=== PATIENT | male | born 1995 | race Caucasian/White ===

== ENCOUNTER 2017-02-15 06:28 | Day surgery (SDC) | payer MEDICAID ==
[~2017-02-15] VITALS: Ht 147.3 cm; Wt 55.0 kg
[~2017-02-15 06:28] MED LIST: ACET-2902 PO; ACET325T47 PO; BISA10SU22 RC; BUSP15 PO; CARB200T6 PO; FE RC; MIRAUD PO; PARO20TA24 PO; RINGERS SOLUTION,LACTATED 1,000 ML IV ONE; TRIH5TAB2 PO
[2017-02-15] MEDS ORDERED: SODIUM CHLORIDE 0.9% 0 ML ONE (06:49)
[2017-02-15] MEDS ORDERED: BACITRACIN 50,000 UNITS/VIAL ONE (06:50)
[2017-02-15] MEDS ORDERED: BACITRACIN 28.4 GM OINTMENT TP ONE (06:51)
[2017-02-15] MEDS ORDERED: MIDAZOLAM HCL 5 MG/ML VIAL ONE (07:13)
[2017-02-15] MEDS ORDERED: SODIUM CHLORIDE 0.9% 10 ML ONE (07:55)
[2017-02-15] MEDS ORDERED: EPINEPHrine 1:1,000 [1 MG/ML] AMP ONE (07:55)
[2017-02-15] MEDS ORDERED: LIDOCAINE HCL 1%/EPI 1:200,000/PF 10 ML VIAL ONE (07:56)
[2017-02-15] MEDS ORDERED: RINGERS SOLUTION,LACTATED 1,000 ML IV ONE (08:31)
[2017-02-15] MEDS ORDERED: HEPARIN SODIUM 1000 UNITS/NS 500 ML ONE (08:48)
[2017-02-15] MEDS ORDERED: ROCURONIUM BROMIDE 10 MG/ML 5 ML VIAL IVP ONE (12:00)
[2017-02-15] MEDS ORDERED: KETAMINE HCL 50 MG/ML 10 ML VIAL IVP ONE (12:00)
[2017-02-15] MEDS ORDERED: METOCLOPRAMIDE HCL 5 MG/ML 2 ML VIAL IVP ONE (12:00)
[2017-02-15] MEDS ORDERED: NEOSTIGMINE METHYLSULFATE 1 MG/ML 10 ML VIAL IVP ONE (12:00)
[2017-02-15] MEDS ORDERED: DiphenhydrAMINE HCL 50 MG/ML VIAL IVP ONE (12:00)
[2017-02-15] MEDS ORDERED: ONDANSETRON HCL 4 MG/2 ML VIAL IVP ONE (12:00)
[2017-02-15] MEDS ORDERED: GLYCOPYRROLATE 0.2 MG/ML VIAL IM ONE (12:00)
[2017-02-15] MEDS ORDERED: LIDOCAINE HCL/PF 2% 5 ML VIAL INJ ONE (12:00)
[2017-02-15] MEDS ORDERED: DEXAMETHASONE SOD PHOS 4 MG/ML VIAL IVP ONE (12:00)
[2017-02-15] MEDS ORDERED: FentaNYL CITRATE-PF 100 MCG/2 ML VIAL IVP ONE (12:00)
[2017-02-15] MEDS ORDERED: PROPOFOL 1% 20 ML VIAL IVP ONE (12:00)
== END 2017-02-15 10:05 | disposition home or self-care (01) ==
LOC: SDS 06:28 → EDSTATUS 07:30 → SDS 10:05
PROVIDERS: ATTEND Otolaryngology
DX: S00.432A Contusion of left ear, initial encounter (principal); F73 Profound intellectual disabilities; Z88.0 Allergy status to penicillin; Z86.69 Personal history of other diseases of the nervous system and sense organs; X83.8XXA Intentional self-harm by other specified means, initial encounter; Y93.9 Activity, unspecified; Y92.9 Unspecified place or not applicable
CPT/HCPCS: 69000; J0171; J1100; J1200; J1644; J2250; J2405; J2704; J2765; J3010; J3490 ×5; J7120